=== PATIENT | female | born 1945 | race Caucasian/White ===

== ENCOUNTER → 2016-10-23 | Outpatient (CLI) | payer MEDICARE, BC ==
[~2016-10-23] VITALS: Ht 167.6 cm; Wt 78.5 kg
[~2016-10-23] MED LIST: ADENOSINE 66 MG in GIVE UN-DILUTED 0 ML IV ONE; ADENOSINE 90 MG/30 ML INJ IV ONE
[2016-10-23 12:25] LABS: Basophils # (auto) 0 uL; CONDITION Y; DEFINITIVE SEE PRINTOUT; Eosinophils # (auto) 0.1 uL; Eosinophils % (auto) 3.3 % (0.0-7.0); Hematocrit 41.4 % (36.0-46.0); Hemoglobin 14.3 g/dL (12.2-16.2); Lymphocytes # (auto) 1.6 uL; Lymphocytes % (auto) 40.7 % (10.0-50.0); Mean Corpuscular Hemoglobin 35.5 pg (28.0-32.0); Mean Corpuscular Hgb Conc. 34.4 g/dL (32.0-36.0); Mean Corpuscular Volume 103.1 fL (80.0-100.0); Mean Platelet Volume 10.8 fL (7.4-10.4); Monocytes # (auto) 0.3 uL; Monocytes % (auto) 7.5 % (0.0-12.0); Neutrophils # (auto) 1.8 uL; Neutrophils % (auto) 47.5 % (37.0-80.0); White Blood Cell 3.9 10^3/uL (4.4-10.8)
[2016-10-23 12:29] LABS: Urine Bilirubin Negative (Negative); Urine Blood Negative /uL (Negative); Urine Color Yellow (Yellow); Urine Glucose Normal (Normal); Urine Ketone Negative (Negative); Urine Nitrite Negative (Negative); Urine Urobilinogen Normal (Negative)
[2016-10-23 12:43] LABS: Platelet Count (auto) 180 10^3/uL (140-450)
[2016-10-23 13:13] LABS: BUN/Creatinine Ratio 19.7; Bilirubin, Direct 0.2 mg/dL (0-0.2); Bilirubin, Total 0.9 mg/dL (0.2-1.0); Calcium 9.2 mg/dL (8.5-10.1); Potassium 3.7 mmol/L (3.5-5.1); Total Protein 7.2 g/dL (6.4-8.2)
== END | disposition home or self-care (01) ==
LOC: Rad HDHVI 08:47
PROVIDERS: ATTEND Internal Medicine Cardiovascular Disease
DX: I10 Essential (primary) hypertension (principal); E11.9 Type 2 diabetes mellitus without complications; E78.00 Pure hypercholesterolemia, unspecified; K74.1 Hepatic sclerosis; E03.9 Hypothyroidism, unspecified; D64.9 Anemia, unspecified; E55.9 Vitamin D deficiency, unspecified; N39.0 Urinary tract infection, site not specified; R93.1 Abnormal findings on diagnostic imaging of heart and coronary circulation; R53.81 Other malaise
CPT/HCPCS: 36415; 78452; 80048; 80061; 80076; 81003; 82306; 83036; 84443; 85025; 93005; 93880; 96374; 96375; A9500; J0153

== ENCOUNTER → 2016-12-11 | Outpatient (CLI) | payer MEDICARE, OTHER ==
[2016-12-11 12:32] LABS: Basophils # (auto) 0.1 uL; Basophils % (auto) 1.2 % (0.0-2.0); CONDITION Y; DEFINITIVE SEE PRINTOUT; Eosinophils # (auto) 0.1 uL; Eosinophils % (auto) 2.8 % (0.0-7.0); Hematocrit 41.8 % (36.0-46.0); Hemoglobin 14.5 g/dL (12.2-16.2); Lymphocytes # (auto) 2.1 uL; Mean Corpuscular Hgb Conc. 34.7 g/dL (32.0-36.0); Mean Platelet Volume 10.9 fL (7.4-10.4); Monocytes # (auto) 0.4 uL; Monocytes % (auto) 8.7 % (0.0-12.0); Neutrophils # (auto) 2.2 uL; Neutrophils % (auto) 44.3 % (37.0-80.0); Platelet Count (auto) 182 10^3/uL (140-450); Red Cell Distribution Width 14.2 % (11.6-16.0); White Blood Cell 4.9 10^3/uL (4.4-10.8)
[2016-12-11 12:45] LABS: INR 0.98 (0.9-1.15); Partial Thromboplastin Time 25.9 sec (22.64-33.71); Prothrombin Time 10.7 sec (9.37-12.3)
== END | disposition home or self-care (01) ==
LOC: LAB 10:08
PROVIDERS: ATTEND Internal Medicine Cardiovascular Disease
DX: R79.1 Abnormal coagulation profile (principal); D64.9 Anemia, unspecified
CPT/HCPCS: 36415; 85025; 85610; 85730

== ENCOUNTER → 2018-05-15 | Outpatient (CLI) | payer MEDICARE, OTHER ==
[~2018-05-15] VITALS: Ht 167.6 cm; Wt 81.2 kg
[2018-05-15 11:51] LABS: Basophils # (auto) 0.1 uL; Eosinophils # (auto) 0.1 uL; Eosinophils % (auto) 1.8 % (0.0-7.0); Lymphocytes # (auto) 1.5 uL; Mean Corpuscular Volume 102.9 fL (80.0-100.0); Nucleated Red Blood Cells % 0.2 %; Red Cell Distribution Width 13.1 % (11.8-14.3); Urine Blood Negative /uL (Negative); Urine Specific Gravity 1.003 (1.001-1.035); White Blood Cell 3.9 10^3/uL (4.4-10.8)
[2018-05-15 11:53] LABS: Hematocrit 43.8 % (36.0-46.0); Lymphocytes % (auto) 38.5 % (10.0-50.0); Mean Corpuscular Hemoglobin 35.2 pg (28.0-32.0); Mean Corpuscular Hgb Conc. 34.2 g/dL (32.0-36.0); Monocytes # (auto) 0.4 uL; Monocytes % (auto) 9.2 % (0.0-12.0); Neutrophils # (auto) 1.9 uL; Neutrophils % (auto) 48.5 % (37.0-80.0); Platelet Count (auto) 168 10^3/uL (140-450); Red Blood Cells 4.26 10^6/uL (4.0-5.20)
[2018-05-15 11:58] LABS: Albumin 4.2 g/dL (3.4-5.0); Chloride 105 mmol/L (98-107); Potassium 3.8 mmol/L (3.5-5.1); Sodium 137 mmol/L (136-145)
[2018-05-15 12:06] LABS: Alanine Aminotransferase 53 U/L (13-56); Alkaline Phosphatase 79 U/L (45-117); Anion Gap 7 (5-15); Aspartate Aminotransferase 30 U/L (15-37); BUN/Creatinine Ratio 13.7; Bilirubin, Total 0.8 mg/dL (0.2-1.0); Blood Urea Nitrogen 10 mg/dL (7-18); Calcium 9.1 mg/dL (8.5-10.1); Carbon Dioxide 25 mmol/L (21-32); Cholesterol 189 mg/dL (< 200); GFR African American > 60 mL/min; GFR Non-African American > 60 mL/min; Glucose 91 mg/dL (74-106); HDL Cholesterol 79 mg/dL (40-59); LDL Cholesterol 104 mg/dL (< 100); Total Protein 7.6 g/dL (6.4-8.2); Triglycerides 84 mg/dL (< 150)
[2018-05-15 12:15] LABS: Free T4 (Free Thyroxine) 1.62 ng/dL (0.89-1.76)
== END | disposition home or self-care (01) ==
LOC: Rad HDHVI 09:10
PROVIDERS: ATTEND Internal Medicine Cardiovascular Disease
DX: I11.0 Hypertensive heart disease with heart failure (principal); I50.33 Acute on chronic diastolic (congestive) heart failure; I34.0 Nonrheumatic mitral (valve) insufficiency; E03.9 Hypothyroidism, unspecified; E11.9 Type 2 diabetes mellitus without complications; E55.9 Vitamin D deficiency, unspecified; D51.9 Vitamin B12 deficiency anemia, unspecified; N39.0 Urinary tract infection, site not specified
CPT/HCPCS: 36415; 78452; 80053; 80061; 81003; 82306; 82607; 83036; 84439; 84443; 85025; 87086; 93017; 93306; 96374; A9500

== ENCOUNTER → 2018-05-26 | Outpatient (CLI) | payer MEDICARE, BC ==
[~2018-05-26] MED LIST changes: -ADENOSINE 66 MG in GIVE UN-DILUTED 0 ML IV ONE; -ADENOSINE 90 MG/30 ML INJ IV ONE; +IOHEXOL 350 MG/ML 100ML IJ ONE
[2018-05-26 10:55] VITALS: BP 140/70
--- NOTE | 2018-05-26 10:55 | NUR ---
[facility] PT TO [facility] FOR IV INSERT FOR CT CHEST DUE TO C/O PALPITATIONS, A TYPICAL C.P., SOB.
--- NOTE | 2018-05-26 11:05 | NUR ---
CHF IV insertion IV access obtained, via clean sterile technique by inserting 22 gauge catheter at after attempt(s). IV secured properly. No trauma to site. Patient tolerated procedure well.
[2018-05-26 11:30] VITALS: BP 146/74
--- NOTE | 2018-05-26 11:30 | NUR ---
CHF IV removal IV DC'd with sterile technique, catheter fully intact. Pressure dressing applied to site. Patient tolerated procedure well. Discharged with aftercare instructions per MD. FOLLOW UP WITH DR. DANIELS SCHEDULED FOR RESULTS OF TODAY S TEST. NOTE:
== END | disposition home or self-care (01) ==
LOC: Rad HDHVI 10:48
PROVIDERS: ATTEND Internal Medicine Cardiovascular Disease
DX: K80.20 Calculus of gallbladder without cholecystitis without obstruction (principal)
CPT/HCPCS: 71260; 82565; G0463; Q9967

== ENCOUNTER → 2019-01-28 | Outpatient (CLI) | payer MEDICARE, BC | END | disposition home or self-care (01) | LOC: Rad HDHVI 08:50 | PROVIDERS: ATTEND Internal Medicine Cardiovascular Disease | DX: M79.672 Pain in left foot (principal); M79.671 Pain in right foot; Z88.2 Allergy status to sulfonamides | CPT/HCPCS: 93926 ==

== ENCOUNTER → 2019-05-20 | Outpatient (CLI) | payer MEDICARE, BC ==
[2019-05-20 11:47] LABS: Basophils # (auto) 0.1 uL; Eosinophils # (auto) 0.1 uL; Eosinophils % (auto) 1.9 % (0.0-7.0); Hemoglobin 15.7 g/dL (12.2-16.2); Lymphocytes # (auto) 1.8 uL; Monocytes # (auto) 0.4 uL; Neutrophils # (auto) 2.5 uL; Red Blood Cells 4.45 10^6/uL (4.0-5.20)
[2019-05-20 11:52] LABS: Basophils % (auto) 1.1 % (0.0-2.0); Hematocrit 45.8 % (36.0-46.0); Lymphocytes % (auto) 37.2 % (10.0-50.0); Mean Corpuscular Hemoglobin 35.3 pg (28.0-32.0); Mean Corpuscular Hgb Conc. 34.3 g/dL (32.0-36.0); Mean Corpuscular Volume 102.9 fL (80.0-100.0); Monocytes % (auto) 8.9 % (0.0-12.0); Neutrophils % (auto) 50.9 % (37.0-80.0); Nucleated Red Blood Cells % 0.2 %; Platelet Count (auto) 168 10^3/uL (140-450); White Blood Cell 4.9 10^3/uL (4.4-10.8)
[2019-05-20 11:56] LABS: Urine Blood Negative /uL (Negative); Urine Specific Gravity 1.006 (1.001-1.035)
[2019-05-20 12:13] LABS: Potassium 4.1 mmol/L (3.5-5.1)
[2019-05-20 12:28] LABS: Albumin 4.1 g/dL (3.4-5.0); BUN/Creatinine Ratio 15.2; Bilirubin, Total 0.9 mg/dL (0.2-1.0); Calcium 9.4 mg/dL (8.5-10.1); Total Protein 7.8 g/dL (6.4-8.2)
[2019-05-20 12:37] LABS: Free T4 (Free Thyroxine) 1.67 ng/dL (0.89-1.76)
== END | disposition home or self-care (01) ==
LOC: LAB 09:14
PROVIDERS: ATTEND Internal Medicine Cardiovascular Disease
DX: E03.9 Hypothyroidism, unspecified (principal); K90.9 Intestinal malabsorption, unspecified; N39.0 Urinary tract infection, site not specified; D51.9 Vitamin B12 deficiency anemia, unspecified; Z79.899 Other long term (current) drug therapy
CPT/HCPCS: 36415; 80053; 80061; 81003; 82306; 82607; 83036; 84439; 84443; 85025

== ENCOUNTER → 2019-06-30 | Outpatient (CLI) | payer MEDICARE, BC ==
[~2019-06-30] VITALS: Ht 167.6 cm; Wt 79.4 kg
[~2019-06-30] MED LIST changes: +ADENOSINE 67 MG in GIVE UN-DILUTED 0 ML IV ONE; +ADENOSINE 90 MG/30 ML INJ IV ONE; -IOHEXOL 350 MG/ML 100ML IJ ONE
== END | disposition home or self-care (01) ==
LOC: Rad HDHVI 08:16
PROVIDERS: ATTEND Internal Medicine Cardiovascular Disease
DX: I34.0 Nonrheumatic mitral (valve) insufficiency (principal); R00.2 Palpitations; I11.0 Hypertensive heart disease with heart failure; I50.33 Acute on chronic diastolic (congestive) heart failure; E11.9 Type 2 diabetes mellitus without complications
CPT/HCPCS: 78452; 93005; 93306; 96374; 96375; A9500; J0153

== ENCOUNTER → 2019-08-12 | Outpatient (CLI) | payer MEDICARE, BC ==
[2019-08-12 12:00] LABS: Urine Blood Negative /uL (Negative); Urine Specific Gravity 1.003 (1.001-1.035)
== END | disposition home or self-care (01) ==
LOC: Rad HDHVI 10:28
PROVIDERS: ATTEND Internal Medicine Cardiovascular Disease
DX: E03.9 Hypothyroidism, unspecified (principal); N39.0 Urinary tract infection, site not specified; R06.02 Shortness of breath
CPT/HCPCS: 36415; 71046; 81003; 84439; 84443

== ENCOUNTER → 2020-06-15 | Outpatient (CLI) | payer MEDICARE, BC | END | disposition home or self-care (01) | LOC: Rad HDHVI 10:24 | PROVIDERS: ATTEND Internal Medicine Cardiovascular Disease | DX: Z13.6 Encounter for screening for cardiovascular disorders (principal); I25.10 Atherosclerotic heart disease of native coronary artery without angina pectoris | CPT/HCPCS: 75571 ==

== ENCOUNTER → 2021-06-23 | Outpatient (CLI) | payer MEDICARE, BC ==
[2021-06-23 11:38] LABS: Eosinophils # (auto) 0.1 10 ^3/uL (0-0.8); Eosinophils % (auto) 2.2 % (0.0-7.0); Mean Corpuscular Volume 101.7 fL (80.0-100.0); Monocytes # (auto) 0.4 10 ^3/uL (0-1.3); Monocytes % (auto) 9.2 % (0.0-12.0); Neutrophils # (auto) 1.9 10 ^3/uL (1.6-8.6); White Blood Cell 4.3 10^3/uL (4.4-10.8)
[2021-06-23 11:40] LABS: Basophils # (auto) 0 10 ^3/uL (0-0.2); Hematocrit 41.6 % (36.0-46.0); Hemoglobin 14.5 g/dL (12.2-16.2); Lymphocytes # (auto) 1.9 10 ^3/uL (0.4-5.4); Lymphocytes % (auto) 43.8 % (10.0-50.0); Mean Corpuscular Hemoglobin 35.4 pg (28.0-32.0); Mean Corpuscular Hgb Conc. 34.8 g/dL (32.0-36.0); Neutrophils % (auto) 43.8 % (37.0-80.0); Nucleated Red Blood Cells % 0.1 %; Red Blood Cells 4.09 10^6/uL (4.0-5.20); Red Cell Distribution Width 14.5 % (11.8-14.3)
[2021-06-23 11:46] LABS: Free T4 (Free Thyroxine) 1.14 ng/dL (0.89-1.76)
[2021-06-23 12:22] LABS: Urine Blood Negative /uL (Negative); Urine Specific Gravity 1.003 (1.001-1.035)
[2021-06-23 14:38] LABS: Potassium 3.9 mmol/L (3.5-5.1)
[2021-06-23 14:59] LABS: Albumin 3.8 g/dL (3.4-5.0); BUN/Creatinine Ratio 15.5; Calcium 9.2 mg/dL (8.5-10.1)
[2021-06-23 15:43] LABS: Bilirubin, Total 0.8 mg/dL (0.2-1.0); Total Protein 7.1 g/dL (6.4-8.2)
== END | disposition home or self-care (01) ==
LOC: Rad HDHVI 09:02
PROVIDERS: ATTEND Internal Medicine Cardiovascular Disease
DX: I08.1 Rheumatic disorders of both mitral and tricuspid valves (principal); I10 Essential (primary) hypertension; D51.3 Other dietary vitamin B12 deficiency anemia; R00.2 Palpitations; D64.9 Anemia, unspecified; E11.9 Type 2 diabetes mellitus without complications; E55.9 Vitamin D deficiency, unspecified; R53.1 Weakness; R30.0 Dysuria; R06.02 Shortness of breath
CPT/HCPCS: 36415; 80053; 80061; 81003; 82306; 82607; 83036; 84439; 84443; 85025; 93306

== ENCOUNTER → 2022-01-31 | Outpatient (CLI) | payer MEDICARE, BC | END | disposition home or self-care (01) | LOC: Rad HDHVI 12:54 | PROVIDERS: ATTEND Internal Medicine Cardiovascular Disease | DX: M47.814 Spondylosis without myelopathy or radiculopathy, thoracic region (principal); M43.8X6 Other specified deforming dorsopathies, lumbar region; R10.819 Abdominal tenderness, unspecified site; I70.0 Atherosclerosis of aorta; R06.02 Shortness of breath | CPT/HCPCS: 71046 ==

== ENCOUNTER → 2022-05-07 | Outpatient (CLI) | payer MEDICARE, BC | END | disposition home or self-care (01) | LOC: Rad HDHVI 08:48 | PROVIDERS: ATTEND Internal Medicine Cardiovascular Disease | DX: R94.4 Abnormal results of kidney function studies (principal) | CPT/HCPCS: 36415; 82565; 84520; 93306 ==

== ENCOUNTER → 2022-05-11 | Outpatient (CLI) | payer MEDICARE, BC ==
[~2022-05-11] MED LIST changes: -ADENOSINE 67 MG in GIVE UN-DILUTED 0 ML IV ONE; -ADENOSINE 90 MG/30 ML INJ IV ONE; +IOHEXOL 350 MG/ML 100ML IJ ONE
[2022-05-11 10:25] VITALS: BP 148/83
[2022-05-11 10:41] VITALS: BP 150/72
== END | disposition home or self-care (01) ==
LOC: Rad HDHVI 10:18
PROVIDERS: ATTEND Internal Medicine Cardiovascular Disease
DX: K80.20 Calculus of gallbladder without cholecystitis without obstruction (principal); K76.0 Fatty (change of) liver, not elsewhere classified; M47.814 Spondylosis without myelopathy or radiculopathy, thoracic region; J98.4 Other disorders of lung; R06.02 Shortness of breath; R05.3 Chronic cough
CPT/HCPCS: 71260; G0463; Q9967

== ENCOUNTER → 2023-02-26 | Outpatient (CLI) | payer MEDICARE, BC ==
[~2023-02-26] MED LIST changes: -IOHEXOL 350 MG/ML 100ML IJ ONE; +levoFLOXacin 500MG 100 ML IV ONE
[2023-02-26 11:45] VITALS: BP 128/80; PULSE 71; RESP 16; O2SAT 98
[2023-02-26 13:20] VITALS: BP 139/67; PULSE 59; RESP 16; O2SAT 97
== END | disposition home or self-care (01) ==
LOC: CHF HDHVI 11:45
PROVIDERS: ATTEND Internal Medicine Cardiovascular Disease
DX: A05.9 Bacterial foodborne intoxication, unspecified (principal); R10.9 Unspecified abdominal pain; R25.2 Cramp and spasm; R19.7 Diarrhea, unspecified
CPT/HCPCS: 96365; G0463; J1956

== ENCOUNTER → 2023-03-01 | Outpatient (CLI) | payer MEDICARE, BC ==
[~2023-03-01] VITALS: Ht 30.5 cm; Wt 0.5 kg
[~2023-03-01] MED LIST changes: +SODIUM CHLORIDE 0.9% 1,000 ML IV ONE; -levoFLOXacin 500MG 100 ML IV ONE
[2023-03-01 09:57] VITALS: BP 126/65; PULSE 67; RESP 16; O2SAT 95
[2023-03-01 12:25] VITALS: BP 136/65; PULSE 65; RESP 16; O2SAT 95
== END | disposition home or self-care (01) ==
LOC: CHF HDHVI 09:51
PROVIDERS: ATTEND Internal Medicine Cardiovascular Disease
DX: E86.0 Dehydration (principal); A05.9 Bacterial foodborne intoxication, unspecified; R19.7 Diarrhea, unspecified
CPT/HCPCS: 96360; 96361; G0463; J7030

== ENCOUNTER 2023-03-26 12:54 | Inpatient (IN) | payer MEDICARE, BC ==
[~2023-03-26] VITALS: Ht 167.6 cm; Wt 79.8 kg
[2023-03-26 17:21] VITALS: BP 141/67; PULSE 66; PULSE 68; RESP 18; TEMP 97.6; O2SAT 99
[2023-03-26] MEDS ORDERED: OLME1TAB71 PO (17:31)
[2023-03-26] MEDS ORDERED: LEV100T GT (17:35)
[2023-03-26] MEDS ORDERED: IBUP-1453 PO (17:44)
[2023-03-26] MEDS ORDERED: NITROGLYCERIN 0.4 MG SL TAB SL PRN (19:30)
[2023-03-26] MEDS ORDERED: HYDROmorphone HCL 2 MG/ML VL/or syr IV PRN (19:30)
[2023-03-26] MEDS ORDERED: MORPHINE SULFATE INJ 2 MG/ml SYRG IV PRN (19:30)
[2023-03-26 20:00] VITALS: PULSE 68; RESP 17; O2SAT 99
[2023-03-26 20:25] LABS: Basophils # (auto) 0.1 10 ^3/uL (0-0.2); Eosinophils # (auto) 0.9 10 ^3/uL (0-0.8); Eosinophils % (auto) 9.5 % (0.0-7.0); Hematocrit 40.3 % (36.0-46.0); Hemoglobin 13.6 g/dL (12.2-16.2); Lymphocytes # (auto) 1.3 10 ^3/uL (0.4-5.4); Mean Corpuscular Hemoglobin 32.9 pg (28.0-32.0); Mean Corpuscular Hgb Conc. 33.8 g/dL (32.0-36.0); Mean Corpuscular Volume 97.4 fL (80.0-100.0); Monocytes # (auto) 1.3 10 ^3/uL (0-1.3); Monocytes % (auto) 13.6 % (0.0-12.0); Neutrophils % (auto) 61.9 % (37.0-80.0); Red Blood Cells 4.14 10^6/uL (4.0-5.20); White Blood Cell 9.7 10^3/uL (4.4-10.8)
[2023-03-26 20:32] LABS: Chloride 100 mmol/L (98-107); Potassium 4.5 mmol/L (3.5-5.1); Sodium 134 mmol/L (136-145)
[2023-03-26 20:33] LABS: Anion Gap 6 (5-15); Carbon Dioxide 28 mmol/L (20-30)
[2023-03-26 20:34] LABS: Calcium 9.6 mg/dL (8.5-10.1)
[2023-03-26 20:38] LABS: BUN/Creatinine Ratio 16.7 (10.0-20.0); Blood Urea Nitrogen 11 mg/dL (9-23); Glucose 81 mg/dL (74-106)
[2023-03-26] MEDS: PIPERACILLIN-TAZOB 3.375GM 100 ML IV SCH (21:56)
[2023-03-26] MEDS: D5W/SOD CHL 0.45% 1,000 ML IV SCH (21:57)
[2023-03-26 22:00] VITALS: BP 138/59; PULSE 68; RESP 17; TEMP 99.8; O2SAT 97
[2023-03-26] MEDS ORDERED: PIPERACILLIN-TAZO 4.5GM 100 ML IV SCH (22:00)
[2023-03-27 05:00] VITALS: BP 115/59; PULSE 69; RESP 17; TEMP 97.8; O2SAT 95
[2023-03-27] MEDS: PIPERACILLIN-TAZOB 3.375GM 100 ML IV SCH ×2 (06:00→15:37)
[2023-03-27] MEDS ORDERED: IOHEXOL 300 MG/ML 100ML BOTTLE IJ ONE (06:21)
[2023-03-27] MEDS ORDERED: OMNIPAQUE 12mg/ml 500ml ORAL SOLUTION PO ONE (06:21)
[2023-03-27 08:00] VITALS: PULSE 70; RESP 16; O2SAT 92
[2023-03-27] MEDS: LEVOTHYROXINE SODIUM 100 MCG TAB GT SCH (10:11)
[2023-03-27 11:24] VITALS: BP 108/59; PULSE 70; RESP 16; TEMP 98.6; O2SAT 96
[2023-03-27 16:55] VITALS: BP 115/70; PULSE 65; RESP 18; TEMP 97.6; O2SAT 95
[2023-03-27 17:51] LABS: INR 1.19 (0.9-1.15); Partial Thromboplastin Time 31.8 SEC (24.5-34.5); Prothrombin Time 12.4 sec (9.3-11.8)
[2023-03-27 18:04] LABS: Alanine Aminotransferase 84 U/L (7-40); Albumin 3.9 g/dL (3.2-4.8); Alkaline Phosphatase 195 U/L (46-116); Anion Gap 8 (5-15); Aspartate Aminotransferase 60 U/L (13-40); BUN/Creatinine Ratio 10.2 (10.0-20.0); Bilirubin, Total 0.7 mg/dL (0.2-1.0); Blood Urea Nitrogen 6 mg/dL (9-23); Carbon Dioxide 22 mmol/L (20-30); Chloride 102 mmol/L (98-107); Glucose 93 mg/dL (74-106); Potassium 4.1 mmol/L (3.5-5.1); Sodium 132 mmol/L (136-145); Total Protein 6.5 g/dL (5.7-8.2)
[2023-03-27] MEDS: D5W/SOD CHL 0.45% 1,000 ML IV SCH (19:30)
[2023-03-27 20:00] VITALS: PULSE 65; RESP 20; O2SAT 94
[2023-03-27] MEDS: PANCREATIC ENZYMES 4200 UNIT CAP PO SCH (20:04)
[2023-03-27] MEDS ORDERED: METOCLOPRAMIDE HCL 5MG/ml INJ 2ml VIAL IV SCH (22:00)
[2023-03-27 23:20] VITALS: BP 120/60; PULSE 65; RESP 20; TEMP 97.7; O2SAT 94
[2023-03-28] VITALS (8 sets, daily range): BP systolic 112–122; BP diastolic 52–65; PULSE 55–75; RESP 16–19; TEMP 97.6–99; O2SAT 92–98
[2023-03-28] MEDS: PANCREATIC ENZYMES 4200 UNIT CAP PO SCH ×3 (10:11→18:12)
[2023-03-28] MEDS: LEVOTHYROXINE SODIUM 100 MCG TAB GT SCH (10:11)
[2023-03-28] MEDS ORDERED: HYDROmorphone HCL 2 MG/ML VL/or syr IV PRN (14:45)
[2023-03-28] MEDS ORDERED: METOCLOPRAMIDE HCL 5MG/ml INJ 2ml VIAL IV PRN (14:45)
[2023-03-28] MEDS: ONDANSETRON ODT 4 MG TAB PO SCH (22:11)
[2023-03-28] MEDS: MORPHINE SULF 15mg ER tab PO SCH (22:12)
[2023-03-28] MEDS: D5W/SOD CHL 0.45% 1,000 ML IV SCH (22:14)
[2023-03-29 05:00] VITALS: BP 100/49; PULSE 64; RESP 18; TEMP 98.5; O2SAT 96
[2023-03-29] MEDS: ONDANSETRON ODT 4 MG TAB PO SCH ×3 (06:00→22:00)
[2023-03-29] MEDS: PANCREATIC ENZYMES 4200 UNIT CAP PO SCH ×3 (08:21→17:23)
[2023-03-29 09:00] VITALS: BP 108/48; PULSE 66; RESP 18; TEMP 97.9; O2SAT 94
[2023-03-29] MEDS: PANTOPRAZOLE 40 MG TAB PO SCH ×2 (10:21→22:36)
[2023-03-29] MEDS: LEVOTHYROXINE SODIUM 100 MCG TAB PO SCH (10:21)
[2023-03-29] MEDS: MORPHINE SULF 15mg ER tab PO SCH ×2 (10:21→22:36)
[2023-03-29 13:00] VITALS: BP 119/43; PULSE 63; RESP 18; TEMP 97.4; O2SAT 92
[2023-03-29 16:51] VITALS: BP 114/56; PULSE 74; RESP 18; TEMP 97.9; O2SAT 91
[2023-03-29] MEDS: D5W/SOD CHL 0.45% 1,000 ML IV SCH (17:23)
[2023-03-29 20:30] VITALS: PULSE 79; RESP 17; O2SAT 93
[2023-03-29 22:00] VITALS: BP 116/55; PULSE 79; RESP 17; TEMP 99.7; O2SAT 93
[2023-03-30 05:00] VITALS: BP 105/52; PULSE 66; RESP 17; TEMP 98.5; O2SAT 91
[2023-03-30] MEDS: ONDANSETRON ODT 4 MG TAB PO SCH ×3 (05:42→21:59)
[2023-03-30] MEDS: PANCREATIC ENZYMES 4200 UNIT CAP PO SCH ×3 (08:22→17:53)
[2023-03-30] MEDS: LEVOTHYROXINE SODIUM 100 MCG TAB PO SCH (09:59)
[2023-03-30] MEDS: MORPHINE SULF 15mg ER tab PO SCH ×2 (10:00→21:59)
[2023-03-30] MEDS: PANTOPRAZOLE 40 MG TAB PO SCH ×2 (10:00→21:59)
[2023-03-30 10:59] VITALS: BP 109/54; PULSE 82; RESP 19; TEMP 98.2; O2SAT 94
[2023-03-30] MEDS ORDERED: IOHEXOL 300 MG/ML 100ML BOTTLE IJ ONE (15:47)
[2023-03-30 17:36] VITALS: BP 145/98; PULSE 60; RESP 18; TEMP 97.6; O2SAT 95
[2023-03-30] MEDS: IBUPROFEN 400 MG TAB PO PRN (17:53)
[2023-03-30] MEDS: D5W/SOD CHL 0.45% 1,000 ML IV SCH (20:47)
[2023-03-30 22:00] VITALS: BP 105/59; PULSE 73; RESP 16; TEMP 98.1; O2SAT 92
[2023-03-31 05:00] VITALS: BP 104/51; PULSE 69; RESP 16; TEMP 98; O2SAT 95
[2023-03-31] MEDS: ONDANSETRON ODT 4 MG TAB PO SCH ×3 (06:55→21:07)
[2023-03-31 08:00] VITALS: BP 107/57; PULSE 69; RESP 20; TEMP 97.3; O2SAT 95
[2023-03-31] MEDS: PANCREATIC ENZYMES 4200 UNIT CAP PO SCH ×3 (08:26→17:49)
[2023-03-31] MEDS: LEVOTHYROXINE SODIUM 100 MCG TAB PO SCH (08:26)
[2023-03-31] MEDS: PANTOPRAZOLE 40 MG TAB PO SCH ×2 (08:26→21:06)
[2023-03-31] MEDS: MORPHINE SULF 15mg ER tab PO SCH ×2 (08:27→21:07)
[2023-03-31 08:58] VITALS: BP 107/57; PULSE 69; RESP 20; TEMP 97.3; O2SAT 95
[2023-03-31 13:00] VITALS: BP 102/59; PULSE 69; RESP 20; TEMP 97.9; O2SAT 100
[2023-03-31] MEDS: IBUPROFEN 400 MG TAB PO PRN (17:48)
[2023-03-31] MEDS: D5W/SOD CHL 0.45% 1,000 ML IV SCH (17:49)
[2023-03-31 22:00] VITALS: BP 109/56; PULSE 63; RESP 17; TEMP 98; O2SAT 95
[2023-04-01 05:00] VITALS: BP 122/55; PULSE 66; RESP 16; TEMP 97.8; O2SAT 96
[2023-04-01] MEDS: ONDANSETRON ODT 4 MG TAB PO SCH ×2 (06:00→14:00)
[2023-04-01 08:00] VITALS: BP 108/54; PULSE 74; RESP 18; TEMP 98.6; O2SAT 93
[2023-04-01] MEDS: PANCREATIC ENZYMES 4200 UNIT CAP PO SCH ×2 (08:33→12:32)
[2023-04-01] MEDS: LEVOTHYROXINE SODIUM 100 MCG TAB PO SCH (08:33)
[2023-04-01] MEDS: IBUPROFEN 400 MG TAB PO PRN (08:33)
[2023-04-01] MEDS: PANTOPRAZOLE 40 MG TAB PO SCH (08:33)
[2023-04-01] MEDS: MORPHINE SULF 15mg ER tab PO SCH (08:34)
[2023-04-01 12:37] VITALS: BP 125/59; PULSE 71; RESP 17; TEMP 98; O2SAT 95
[2023-04-01 14:31] VITALS: BP 125/59; PULSE 71; RESP 17; TEMP 98; O2SAT 95
== END 2023-04-01 17:22 | disposition home or self-care (01) | DRG 436 ==
LOC: CENTRAL 15:17
PROVIDERS: ADMIT Internal Medicine Cardiovascular Disease; ATTEND Internal Medicine Cardiovascular Disease
DX: C25.9 Malignant neoplasm of pancreas, unspecified (principal); C78.7 Secondary malignant neoplasm of liver and intrahepatic bile duct; E78.5 Hyperlipidemia, unspecified; I10 Essential (primary) hypertension; E03.9 Hypothyroidism, unspecified; Z96.659 Presence of unspecified artificial knee joint; K80.20 Calculus of gallbladder without cholecystitis without obstruction; Z88.2 Allergy status to sulfonamides
CPT/HCPCS: 36415; 70460; 71045; 74177; 80048; 80053; 85025; 85610; 85730; 93306; 96360; 96361; 96367; 96375; G0378; G0463; J1885; J2543; Q0162

== ENCOUNTER 2023-03-26 16:42 | Emergency (ER) | payer MEDICARE, BC ==
[2023-03-26] MEDS ORDERED: OLME1TAB71 PO (17:31)
[2023-03-26] MEDS ORDERED: LEV100T GT (17:35)
[2023-03-26] MEDS ORDERED: IBUP-1453 PO (17:44)
== END 2023-03-26 18:07 | disposition left against medical advice (07) ==
LOC: ER 16:42
DX: R10.11 Right upper quadrant pain (principal); I10 Essential (primary) hypertension; E78.5 Hyperlipidemia, unspecified; Z53.21 Procedure and treatment not carried out due to patient leaving prior to being seen by health care provider